=== PATIENT | male | born 2005 | race Hispanic/Latino ===

== ENCOUNTER 2024-09-08 14:51 | Emergency (ER) | payer SELFPAY ==
[~2024-09-08] VITALS: Ht 170.2 cm; Wt 78.7 kg
[2024-09-08] MEDS: HYDROCODONE/APAP 5MG-325MG TAB PO ONE (16:18)
[2024-09-08] MEDS: TETANUS/DIPHTHERIA TOX ADULT 0.5 ML SYR IM ONE (16:40)
[2024-09-08 16:49] VITALS: PULSE 76; RESP 18; TEMP 97; O2SAT 95
== END 2024-09-08 17:12 | disposition home or self-care (01) ==
LOC: FSED 15:08
DX: S00.83XA Contusion of other part of head, initial encounter (principal); S60.511A Abrasion of right hand, initial encounter; S50.811A Abrasion of right forearm, initial encounter; M25.521 Pain in right elbow; M25.531 Pain in right wrist; V86.69XA Passenger of other special all-terrain or other off-road motor vehicle injured in nontraffic accident, initial encounter; Y93.I9 Activity, other involving external motion; Y92.89 Other specified places as the place of occurrence of the external cause
CPT/HCPCS: 70450; 71046; 90471; 90714; 96372; 99283